=== PATIENT | female | born 1960 | race Two or more races ===

== ENCOUNTER → 2017-04-30 | Day surgery (SDC) | payer BC ==
[~2017-04-30] MED LIST: LIDOCAINE 2% 100 MG/5 ML SYRINGE.; PROPOFOL 20 ML IV
[2017-04-30] MEDS: IV RINGERS,LACTATED 1000ML 1,000 ML IV ×2 (13:21)
== END | disposition home or self-care (01) ==
LOC: ENDOS 12:55
DX: Z09 Encounter for follow-up examination after completed treatment for conditions other than malignant neoplasm (principal); Z86.010 Personal history of colon polyps; K64.0 First degree hemorrhoids; K57.30 Diverticulosis of large intestine without perforation or abscess without bleeding; J44.9 Chronic obstructive pulmonary disease, unspecified; K21.9 Gastro-esophageal reflux disease without esophagitis; E03.9 Hypothyroidism, unspecified; F41.9 Anxiety disorder, unspecified; F31.9 Bipolar disorder, unspecified; F32.9 Major depressive disorder, single episode, unspecified; F17.200 Nicotine dependence, unspecified, uncomplicated; Z90.49 Acquired absence of other specified parts of digestive tract; Z98.890 Other specified postprocedural states; Z86.39 Personal history of other endocrine, nutritional and metabolic disease; Z72.89 Other problems related to lifestyle; Z88.6 Allergy status to analgesic agent; Z90.710 Acquired absence of both cervix and uterus
CPT/HCPCS: 45378; J2704

== ENCOUNTER 2018-01-25 22:47 | Inpatient (IN) | payer BC ==
[~2018-01-25] VITALS: Ht 162.6 cm; Wt 110.8 kg
[~2018-01-25 22:47] MED LIST changes: +ASPI-482 PO; +ATOR10TA60 PO; +CARI3CAP PO; +CLON1TAB4 PO; +DIVA500T2 PO; +GABA-586 PO; +LEVO75TA5 PO; -LIDOCAINE 2% 100 MG/5 ML SYRINGE.; +NEURONTIN; +OMEP40CA5 PO; -PROPOFOL 20 ML IV; +QUET50TA5 PO; +TOPI50TA38 PO
[2018-01-25] MEDS ORDERED: IV NORMAL SALINE 1000ML BAG 1,000 ML IV ONE (23:30)
[2018-01-25 23:39] LABS: BILIRUBIN,URINE NEGATIVE (NEG); CLARITY,URINE CLEAR; COLOR,URINE YELLOW; NITRITE,URINE NEGATIVE (NEG); PH,URINE 5.5; PROTEIN,URINE NEGATIVE (NEG-TRACE); UROBILINOGEN,URINE 0.2 mg/dL (0.2 mg/dL)
[2018-01-25 23:57] LABS: BACTERIA,URINE FEW /HPF (0-FEW); SQUAMOUS EPITHELIAL CELL,UR FEW /LPF; WBC,URINE >40 /HPF (0-4)
[2018-01-26 00:02] LABS: BASO # 0.1 x10^3/uL (0.0-0.2); BASO % 1 % (0-3); EOS # 0.2 x10^3/uL (0.0-0.7); EOS % 2 % (0-3); HEMATOCRIT 42.7 % (36.0-47.0); HEMOGLOBIN 14.7 g/dL (12.0-15.5); LYMPH # 2.9 x10^3/uL (1.0-4.8); LYMPH % 33 % (24-48); MEAN CORPUSCULAR HEMOGLOBIN 31 pg (25-35); MEAN CORPUSCULAR HGB CONC 34 g/dL (31-37); MEAN CORPUSCULAR VOLUME 90 fL (79-100); MONO # 0.7 x10^3/uL (0.0-1.1); MONO % 8 % (0-9); NEUT # 4.8 x10^3uL (1.8-7.7); NEUT % 56 % (31-73); PLATELET COUNT 292 x10^3/uL (140-400); RED BLOOD COUNT 4.74 x10^6/uL (3.50-5.40); RED CELL DISTRIBUTION WIDTH 13.5 % (11.5-14.5); WHITE BLOOD COUNT 8.6 x10^3/uL (4.0-11.0)
[2018-01-26] MEDS ORDERED: clonazePAM 0.5 MG TABLET PO ONE (00:30)
--- NOTE | 2018-01-26 00:31 | PHYS DOC ---
Past Medical History Past Medical History: A-Fib, Bipolar Past Surgical History: Hysterectomy, Other Additional Past Surgical Histo: cardiac ablasion, cardiac cath 2010 Alcohol Use: None Drug Use: None Adult General Chief Complaint Chief Complaint: ALCOHOL INTOXICATION HPI HPI Patient is a 57 year old female who was brought to this facility via EMS when she was found unresponsive in her dining room. The patient was at home celebrating her wedding today. The patient had multiple servings of alcohol and passed out at home. She was arousable when she presented to the emergency department. She was still extremely sleepy but able to verbalize. The patient does have a history of A. fib with 2 ablations. She stated upon arrival that she felt like she might be back in A. fib. She denies chest pain, nausea or vomiting. She denies shortness of air. Review of Systems Review of Systems Constitutional: Denies fever or chills [] Eyes: Denies change in visual acuity, redness, or eye pain [] HENT: Denies nasal congestion or sore throat [] Respiratory: Denies cough or shortness of breath [] Cardiovascular: No additional information not addressed in HPI [] GI: Denies abdominal pain, nausea, vomiting, bloody stools or diarrhea [] : Denies dysuria or hematuria [] Musculoskeletal: Denies back pain or joint pain [] Integument: Denies rash or skin lesions [] Neurologic: See history of present illness Endocrine: Denies polyuria or polydipsia [] All other systems were reviewed and found to be within normal limits, except as documented in this note. Current Medications Current Medications Current Medications Medications (Trade) Dose Ordered Sig/Deidre Start Time Stop Time Status Last Admin Dose Admin Cephalexin HCl (Keflex) 500 mg 1X ONCE 01/26/18 02:00 01/26/18 02:01 DC 01/26/18 01:57 500 MG Clonazepam (KlonoPIN) 0.5 mg 1X ONCE 01/26/18 00:30 01/26/18 01:02 DC Lorazepam (Ativan) 1 mg PRN Q4HRS PRN 01/26/18 02:15 01/26/18 14:01 DC Ondansetron HCl (Zofran) 4 mg PRN Q8HRS PRN 01/26/18 02:00 01/26/18 14:01 DC Sodium Chloride 1,000 ml @ 1,000 mls/hr 1X ONCE 01/25/18 23:30 01/26/18 00:29 DC 01/25/18 23:30 1,000 MLS/HR Allergies Allergies Allergies Coded Allergies Type Severity Reaction Last Updated Verified morphine Allergy Mild Itching 03/22/14 Yes Physical Exam Physical Exam Constitutional: Well developed, well nourished, no acute distress, non-toxic appearance. [] HENT: Normocephalic, atraumatic, bilateral external ears normal, oropharynx moist, no oral exudates, nose normal. [] Eyes: PERRLA, EOMI, conjunctiva normal, no discharge. [] Neck: Normal range of motion, no tenderness, supple, no stridor. [] Cardiovascular:Heart rate regular rhythm, no murmur [] Lungs & Thorax: Bilateral breath sounds clear to auscultation [] Abdomen: Bowel sounds normal, soft, no tenderness, no masses, no pulsatile masses. [] Skin: Warm, dry, no erythema, no rash. [] Back: No tenderness, no CVA tenderness. [] Extremities: No tenderness, no cyanosis, no clubbing, ROM intact, no edema. [] Neurologic: Alert and oriented X 3, normal motor function, normal sensory function, no focal deficits noted. [] Psychologic: The patient is intoxicated Physical exam by Dr. Alvarez: Constitutional: Well developed, well nourished, no acute distress, anxious, intoxicated HENT: Normocephalic, atraumatic Eyes: PERRL, EOMI, conjunctiva normal, horizontal nystagmus noted Neck: Normal range of motion, no tenderness Cardiovascular: Heart rate regular rhythm, no murmur [] Lungs & Thorax: Bilateral breath sounds clear to auscultation [] Skin: Warm, dry, no erythema, no rash. [] Neurologic: Alert and oriented X 3, normal motor function, normal sensory function, no focal deficits noted. [] Psychologic: The patient is intoxicated and anxious Current Patient Data Vital Signs Vital Signs Date Time Temp Pulse Resp B/P (MAP) Pulse Ox O2 Delivery O2 Flow Rate FiO2 01/25/18 22:47 97.5 82 16 136/81 (99) 99 Room Air 97.5 Lab Values Laboratory Tests Test 01/25/18 23:15 01/25/18 23:50 Urine Collection Type Unknown Urine Color Yellow Urine Clarity Clear Urine pH 5.5 Urine Specific [place] 1.010 Urine Protein Negative mg/dL (NEG-TRACE) Urine Glucose (UA) Negative mg/dL (NEG) Urine Ketones (Stick) Negative mg/dL (NEG) Urine Blood Negative (NEG) Urine Nitrite Negative (NEG) Urine Bilirubin Negative (NEG) Urine Urobilinogen Dipstick 0.2 mg/dL (0.2 mg/dL) Urine Leukocyte Esterase Moderate (NEG) Urine RBC 3-5 /HPF (0-2) Urine WBC >40 /HPF (0-4) Urine Squamous Epithelial Cells Few /LPF Urine Bacteria Few /HPF (0-FEW) White Blood Count 8.6 x10^3/uL (4.0-11.0) Red Blood Count 4.74 x10^6/uL (3.50-5.40) Hemoglobin 14.7 g/dL (12.0-15.5) Hematocrit 42.7 % (36.0-47.0) Mean Corpuscular Volume 90 fL (79-100) Mean Corpuscular Hemoglobin 31 pg (25-35) Mean Corpuscular Hemoglobin Concent 34 g/dL (31-37) Red Cell Distribution Width 13.5 % (11.5-14.5) Platelet Count 292 x10^3/uL (140-400) Neutrophils (%) (Auto) 56 % (31-73) Lymphocytes (%) (Auto) 33 % (24-48) Monocytes (%) (Auto) 8 % (0-9) Eosinophils (%) (Auto) 2 % (0-3) Basophils (%) (Auto) 1 % (0-3) Neutrophils # (Auto) 4.8 x10^3uL (1.8-7.7) Lymphocytes # (Auto) 2.9 x10^3/uL (1.0-4.8) Monocytes # (Auto) 0.7 x10^3/uL (0.0-1.1) Eosinophils # (Auto) 0.2 x10^3/uL (0.0-0.7) Basophils # (Auto) 0.1 x10^3/uL (0.0-0.2) Sodium Level 141 mmol/L (136-145) Potassium Level 3.6 mmol/L (3.5-5.1) Chloride Level 109 mmol/L (98-107) H Carbon Dioxide Level 18 mmol/L (21-32) L Anion Gap 14 (6-14) Blood Urea Nitrogen 13 mg/dL (7-20) Creatinine 0.9 mg/dL (0.6-1.0) Estimated GFR (Cockcroft-Gault) 64.5 BUN/Creatinine Ratio 14 (6-20) Glucose Level 94 mg/dL (70-99) Calcium Level 9.5 mg/dL (8.5-10.1) Total Bilirubin 0.5 mg/dL (0.2-1.0) Aspartate Amino Transferase (AST) 28 U/L (15-37) Alanine Aminotransferase (ALT) 39 U/L (14-59) Alkaline Phosphatase 147 U/L (46-116) H Troponin I Quantitative < 0.017 ng/mL (0.000-0.055) Total Protein 7.5 g/dL (6.4-8.2) Albumin 3.7 g/dL (3.4-5.0) Albumin/Globulin Ratio 1.0 (1.0-1.7) Ethyl Alcohol Level 278 mg/dL (0-10) H Laboratory Tests 01/25/18 23:50 Laboratory Tests 01/25/18 23:50 Microbiology 01/25/18 Urine Culture - Final, Complete 01/25/18 Urine Culture Result 1 (REJI) - Final, Complete EKG EKG [] Radiology/Procedures Radiology/Procedures [] Course & Med Decision Making Course & Med Decision Making Pertinent Labs and Imaging studies reviewed. (See chart for details) As the patient began sobering up she started asking for IV pain medication and benzodiazepines. I explained that I could not administer this medication while she was that intoxicated. She then started braiding the nursing that she is bipolar and needs those medications to treat her bipolar disorder. I did order clonazepam for the patient upon which she stated that she wanted IV ativan instead, we declined. The patient is now saying she is having suicidal ideation and plans to take a handful of pills if she is discharged home. Monique, with the psychiatric assessment team, has been paged to assess the patient. Dragon Disclaimer Dragon Disclaimer This electronic medical record was generated, in whole or in part, using a voice recognition dictation system. Departure Departure Impression: Primary Impression: Alcohol abuse with intoxication Additional Impressions: Suicidal ideation UTI (urinary tract infection) Disposition: ADMITTED INPATIENT Condition: GUARDED Referrals: DORIS GONGORA MD (PCP) Attending Signature Attending Signature Sign out received from Danitza MULLINS regarding patient with history of ETOH intoxication and report of suicidal ideation. Labs reviewed. ETOH 278. PAT team consulted with concern that given ETOH level would be unable to adequately assess for suicidality given intoxication. Given period to time required for patient to sober, decision to medically admit patient with plan for reassessment by PAT team in AM. Patient requiring admission for further evaluation and treatment. Discussed with Dr. Gongora (PCP ) who is in agreement with admission. Discussed findings and plan with patient, who acknowledges understanding and agreement. I have personally interviewed and examined the patient. All charts, labs, and imaging studies were reviewed. I agree with the PA/MANAGER TRAINEE's findings, exam, and plan. Problem Qualifiers Additional Impressions: UTI (urinary tract infection) Urinary tract infection type: acute cystitis Hematuria presence: without hematuria Qualified Codes: N30.00 - Acute cystitis without hematuria DANITZA BUCIO APRN Jan 26, 2018 00:31 CARA ALVAREZ DO Jan 26, 2018 01:57
[2018-01-26 01:19] LABS: CALCIUM 9.5 mg/dL (8.5-10.1); CREATININE 0.9 mg/dL (0.6-1.0); GFR 64.5; POTASSIUM 3.6 mmol/L (3.5-5.1)
[2018-01-26 01:25] LABS: ALBUMIN 3.7 g/dL (3.4-5.0); TOTAL BILIRUBIN 0.5 mg/dL (0.2-1.0); TOTAL PROTEIN 7.5 g/dL (6.4-8.2)
--- NOTE | 2018-01-26 01:57 | EKG ---
[facility] [address] [place] [address] Test Date: 2018-01-25 Test Time: 22:58:57 Pat Name: LUCILA SIMON Department: Room: Gender: F Body Design Checker: PETE : 1960 Requested By: DANITZA BUCIO Order Number: [id number] Reading MD: Measurements Intervals [place] Rate: 76 P: 56 [place]: 182 QRS: 63 QRSD: 90 T: 38 QT: 402 QTc: 457 Interpretive Statements SINUS RHYTHM NO SPECIFIC ECG ABNORMALITIES RI6.01 No previous ECG available for comparison
[2018-01-26] MEDS ORDERED: CEPHALEXIN 250 MG CAPSULE. PO ONE (02:00)
[2018-01-26] MEDS ORDERED: ONDANSETRON PF 4 MG/2 ML VIAL. IV PRN (02:00)
[2018-01-26] MEDS ORDERED: LORazepam 1 MG TABLET PO PRN (02:15)
[2018-01-26 03:00] VITALS: BP 97/60
[2018-01-26] MEDS ORDERED: FORSKOLIN PO (04:29)
[2018-01-26] MEDS ORDERED: CLON1TAB4 PO (04:29)
[2018-01-26] MEDS ORDERED: QUET50TA PO (04:29)
[2018-01-26] MEDS ORDERED: DIVA500T17 PO (04:29)
[2018-01-26] MEDS ORDERED: HYDR25TA PO (04:29)
[2018-01-26] MEDS ORDERED: LEVO88TA4 PO (04:29)
[2018-01-26] MEDS ORDERED: METO-239 PO (04:29)
[2018-01-26] MEDS ORDERED: ACAI500C PO (04:29)
[2018-01-26] MEDS ORDERED: CARI6CAP PO (04:29)
[2018-01-26 07:00] VITALS: BP 124/71
--- NOTE | 2018-01-26 10:15 | PDOC ---
Provider Note Provider Note [id number] DORIS GONGORA MD Jan 26, 2018 10:15
--- NOTE | 2018-01-26 10:20 | DISCH ---
DISCHARGE INSTRUCTIONS Condition on Discharge Condition on Discharge: Stable Activity After Discharge Activity Instructions for Disc: Activity as tolerated Exercise Instruction after Dis: Walk 30 min, 3 x per week Weight Bearing Status after Di: As tolerated Diet after Discharge Diet after Discharge: Low Fat, Regular, Low Sodium 2 gm Follow-Up Follow up with: dr begum 1w Treatment/Equipment after DC Adaptive Equipment Issued: None DORIS GONGORA MD Jan 26, 2018 10:20
[2018-01-26] MEDS ORDERED: hydrOXYzine PAMOATE 25 MG CAPSULE PO PRN ×2 (10:30)
[2018-01-26] MEDS ORDERED: clonazePAM 1 MG TABLET PO SCH (11:00)
[2018-01-26] MEDS ORDERED: TOPIRAMATE 25 MG TABLET. PO SCH (11:00)
[2018-01-26] MEDS ORDERED: LEVOTHYROXINE 88 MCG TABLET PO SCH (11:00)
[2018-01-26] MEDS ORDERED: CEPHALEXIN 250 MG CAPSULE. PO SCH (11:00)
[2018-01-26] MEDS ORDERED: METOPROLOL SUCC 24HR ER 25 MG TAB.ER.24H. PO SCH (11:00)
--- NOTE | 2018-01-26 11:02 | SSS ---
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 She has a urinary tract infection as well and other laboratory studies were unremarkable. She is lucid now and is clearly not suicidal and comfortable to be discharged and followed as an outpatient. She received oral Keflex while in the hospital for her UTI. FINAL DIAGNOSES: 1. Acute alcohol intoxication with secondary suicidal ideation. 2. Urinary tract infection. OPERATIONS, PROCEDURES, COMPLICATIONS, AND CONSULTATIONS: None. DISPOSITION: Will call in Keflex 500 mg 3 times a day for 2 more days, regular diet. Activity as tolerated. Complete alcohol avoidance. Continue all home meds per her psychiatrist and office follow up in our office in 1 week for the TSH. Follow up for her Synthroid therapy. Prognosis is good. DORIS GONGORA MD DR: ED/altagracia JOB#: [id number] / [id number]
[2018-01-26] MEDS ORDERED: LACTOBACILLUS RHAMNOSUS GG 1 CAPSULE. PO SCH (21:00)
[2018-01-26] MEDS ORDERED: DIVALPROEX EXTENDED RELEASE 250 MG TAB.ER.24H. PO SCH (21:00)
== END 2018-01-26 11:00 | disposition home or self-care (01) | DRG 690 ==
LOC: ER 22:47 → 5 NORTH 01-26 02:25 → MERGE 01-26 02:25
PROVIDERS: ADMIT Family Medicine; ATTEND Family Medicine
DX: N39.0 Urinary tract infection, site not specified (principal); R45.851 Suicidal ideations; F10.129 Alcohol abuse with intoxication, unspecified; I48.91 Unspecified atrial fibrillation; F31.9 Bipolar disorder, unspecified; Z90.710 Acquired absence of both cervix and uterus
CPT/HCPCS: 36415; 80053; 81001; 84484; 85025; 87086; 90471; 90756; 93005; 96360; 96372; G0480; J2060; J7030; 99285-25; Q2035